=== PATIENT | male | born 1960 | race Caucasian/White ===

== ENCOUNTER 2019-11-24 15:46 | Observation (INO) ==
[2019-11-24] MEDS ORDERED: SODIUM CHLORIDE 0.9% INJ PRN (16:29)
[2019-11-24] MEDS ORDERED: PHENERGAN IV PRN (16:29)
[2019-11-24] MEDS ORDERED: TYLENOL PO PRN (16:29)
[2019-11-24] MEDS: HUMULIN R SUBQ SCH (17:25)
[2019-11-24] MEDS: ZOSYN 4.5 GM in NS 100 ML IV SCH (17:26)
[2019-11-24 17:44] LABS: BASO% 0.6 % (0.0-0.8); EOS# 0.07 X1000 (0.0-0.7); EOS% 0.4 % (0.0-10.0); HEMATOCRIT 45.7 % (42.0-52.0); HEMOGLOBIN 15.1 g/dL (14.0-18.0); IMM GRAN# 0.05 X1000 (0.0-0.04); IMM GRAN% 0.3 % (0.0-0.5); LYMPH# 1.45 X1000 (1.2-3.4); LYMPH% 8.9 % (20.5-51.1); MCH 29.7 PG (27-31); MONO# 2.29 X1000 (0.11-0.59); MONO% 14.1 % (1.7-9.3); NEUT# 12.25 X1000 (1.4-6.5); NEUT% 75.7 % (42.2-75.2); PLT 261 X1000 (130-400); RBC 5.08 XMIL (4.7-6.1); RDW 14.1 % (11.5-14.5); WBC 16.21 X1000 (4.8-10.8)
[2019-11-24 18:13] LABS: AGAP 13; BUN 13 mg/dL (8-22); CALCIUM 9.5 mg/dL (8.8-10.2); CHLORIDE 97 mmol/L (98-107); COSMO 275; ESTIMATED GFR > 60; GLUCOSE 149 mg/dL (70-104); POTASSIUM 3.8 mmol/L (3.5-5.1); SODIUM 136 mmol/L (136-145); TCO2 26 mmol/L (25-35)
[2019-11-24] MEDS: VANCOMYCIN 1 GM/NS 1 GM/250 ML IVPB IV SCH (18:33)
[2019-11-24] MEDS ORDERED: LIPITOR PO SCH (21:00)
[2019-11-24] MEDS: COREG PO SCH (22:19)
[2019-11-25] MEDS: HUMULIN R SUBQ SCH ×3 (00:25→14:52)
[2019-11-25] MEDS: ZOSYN 4.5 GM in NS 100 ML IV SCH ×3 (00:25→13:17)
[2019-11-25] MEDS: VANCOMYCIN 1 GM/NS 1 GM/250 ML IVPB IV SCH (07:12)
--- NOTE | 2019-11-25 07:45 | PROGRESS NOTE ---
DATE: 11/25/2019 SUBJECTIVE: Mr. Baires was admitted to [facility] with cellulitis of the face. Clinically, he has improved significantly overnight. He has much less perioral swelling, and diminished erythema and induration over the right cheek. He did have a leukocytosis of 16,000, with a left shift. Blood cultures are pending. Blood pressure is well controlled. Systolic blood pressures are ranging from 110 to 131 whereas his diastolic blood pressures are ranging from 65 to 79. He denies any chest pain, palpitations, or anginal equivalents. Blood sugars are well controlled. Sugars are ranging from 116 to 148. OBJECTIVE: Vitals: Temperature 98.6 degrees, pulse 70, respirations 18, BP 110/65. CV: Regular rate and rhythm. Lungs: Clear. Abdomen: Soft, nontender, with active bowel sounds. HEENT: There is much less erythema and swelling over the right cheek. The periorbital swelling around the right eye has improved significantly. ASSESSMENT AND PLAN: 1. Facial cellulitis. We will continue Zosyn and vancomycin pending cultures. At the time of discharge we will transition him to Augmentin. 2. Hypertension. Blood pressure is stable. We will continue lisinopril 20 mg daily and Coreg 12.5 mg b.i.d. 3. Type 2 [id number] diabetes mellitus. We will continue pattern sugars, Humulin R sliding scale, and metformin 500 mg daily. cc: Cliff Grullon MD
[2019-11-25] MEDS ORDERED: GLUCOPHAGE XR PO SCH (08:00)
[2019-11-25 08:27] VITALS: BP 114/67
[2019-11-25] MEDS ORDERED: PRINIVIL PO SCH (09:00)
[2019-11-25] MEDS: COREG PO SCH (09:10)
[2019-11-25] MEDS ORDERED: LIPITOR PO SCH (21:00)
[2019-11-25] MEDS ORDERED: BRILINTA PO SCH (21:00)
[2019-11-26] MEDS ORDERED: GLUCOPHAGE PO SCH (09:00)
[2019-11-26] MEDS ORDERED: ASPIRIN PO SCH (09:00)
[2019-11-26] MEDS ORDERED: PRINIVIL PO SCH (09:00)
--- NOTE | 2019-11-26 10:58 | DISCHARGE SUMMARY ---
ADMISSION DATE: 11/24/2019 DISCHARGE DATE: 11/25/2019 DISCHARGE DIAGNOSES: 1. Cellulitis of the face secondary to abscessed tooth. 2. Essential hypertension. 3. Mixed hyperlipidemia. 4. Type 2 diabetes mellitus without complication. 5. Ischemic heart disease with a history of angioplasty and stenting of the left anterior descending. DISCHARGE INSTRUCTIONS: 1. Return to clinic in 1 week to see me, Dr. Federico Grullon. 2. Activity as tolerated. 3. An 1800-calorie ADA diet. DISCHARGE MEDICATIONS: Atorvastatin 80 mg at bedtime, Coreg 12.5 mg b.i.d., lisinopril 20 mg daily, metformin 500 mg daily, aspirin 81 mg daily, Brilinta 90 mg b.i.d., Augmentin 875 mg 1 b.i.d. for 10 days. DISCHARGE PHYSICAL EXAMINATION: General: This is a well-developed, well-nourished, 59-year-old, gentleman in no apparent distress. Vital Signs: He is afebrile. Vital signs are stable. CV: Regular rate and rhythm. Lungs: Clear. Abdomen: Soft, nontender with active bowel sounds. HISTORY AND HOSPITAL COURSE: Mr. Baires had an abscessed tooth and developed subsequent erythema and swelling of the right cheek. We initially treated him as an outpatient with Augmentin 875 mg b.i.d. Unfortunately, his swelling continued to progress to the point where he had marked swelling of the periorbital region of the right eye. The patient was admitted to [facility] as an outpatient for intravenous antibiotics. We initially started him on Zosyn 4.5 grams IV every 6 hours, and vancomycin. Blood cultures were negative at 48 hours. With aggressive IV therapy, the swelling and erythema of the face improved remarkably overnight to the point where we felt that he was safe for discharge. He will complete the 10-day course of Augmentin 875 mg b.i.d. I have advised him to follow up with his dentist. I am not sure whether he will need a root canal or have that tooth extracted. If he needs elective surgery, it will pose a significant issue as he is currently taking Brilinta. He had a drug-eluting stent, and should not have any elective procedures for at least 1 year as he cannot be off the Brilinta. If surgery is absolutely necessary, we will consult Dr. Cory Villela, who is his engineering documentation specialist, for further recommendations as to how to best manage his anticoagulation. He does have a longstanding history of essential hypertension. His blood pressure was fluctuating. We continued the Prinivil 20 mg daily, but increased the Coreg to 12.5 mg b.i.d. with stabilization of his blood pressure. Having reached maximum hospital benefit, the patient was discharged in stable condition. cc: Cliff Grullon MD
== END 2019-11-25 14:48 | disposition home or self-care (01) ==
LOC: DIRADM → 3N 15:46
PROVIDERS: ADMIT Internal Medicine; ATTEND Internal Medicine